=== PATIENT | male | born 1955 | race Caucasian/White ===

== ENCOUNTER 2017-11-17 05:22 | Emergency (ER) | payer OTHER ==
[2017-11-17 05:41] VITALS: BMI 30.1
--- NOTE | 2017-11-17 05:50 | PDOC ---
History of Present Illness - General Chief Complaint: Pain Stated Complaint: ABD PAIN Time Seen by Provider: 11/17/17 05:49 History Source: Patient - History of Present Illness Initial Comments: 11/17/17 06:54 62 year old male with LLQ pain since 2 am with 4 episodes of vomiting. + hard BM last night. denies fever/ chills, chest pain, urinary symptoms. unable to pass flatus. Past History - Past Medical History Allergies/Adverse Reactions: Allergies Allergy/AdvReac Type Severity Reaction Status Date / Time No Known Allergies Allergy Verified 11/17/17 05:41 Home Medications: Ambulatory Orders Aspirin [ASA -] 81 mg PO DAILY 11/17/17 Glipizide 10 mg PO DAILY 11/17/17 Lisinopril 10 mg PO DAILY 11/17/17 Metformin HCl 850 mg PO TID 11/17/17 Simvastatin 40 mg PO HS 11/17/17 COPD: No - Suicide/Smoking/Psychosocial Hx Smoking History: Never smoked Have you smoked in the past 12 months: No Information on smoking cessation initiated: No Hx Alcohol Use: No Drug/Substance Use Hx: No Review of Systems - Review of Systems Able to Perform ROS?: Yes Is the patient limited Hungarian proficient: No Constitutional: No: Symptoms Reported, See HPI, Chills, Diaphoresis, Fever, Loss of Appetite, Malaise, Night Sweats, Weakness, Weight Stable, Unintentional Wgt. Loss, Unexplained wgt Loss, Other ABD/GI: Yes: Nausea, Vomiting, Abdominal cramping *Physical Exam - Vital Signs Last Vital Signs Temp Pulse Resp BP Pulse Ox 98.8 F 104 H 18 154/78 98 11/17/17 05:37 11/17/17 05:37 11/17/17 05:37 11/17/17 05:37 11/17/17 05:37 - Physical Exam General Appearance: Yes: Appropriately Dressed Respiratory/Chest: positive: Lungs Clear, Normal Breath Sounds Gastrointestinal/Abdominal: positive: Tender (LLQ), Soft, Decreased BS Musculoskeletal: positive: Normal Inspection Extremity: positive: Normal Capillary Refill, Normal Inspection, Normal Range of Motion Integumentary: positive: Normal Color, Dry, Warm Neurologic: positive: Fully Oriented, Alert, Normal Mood/Affect Heart Score/ECG Review - ECG Intrepretation Rhythm: Regular Rhythm Comment:: 11/17/17 06:22 nsr: 98 bpm ED Treatment Course - LABORATORY CBC & Chemistry Diagram: 11/17/17 05:57 11/17/17 05:57 Progress Note - Progress Note Progress Note: A: LLQ pain P: CBC CMP CTAP NOrmal Saline Medical Decision Making - Medical Decision Making 11/17/17 07:00 patient signed out to Lorrie MIRAMONTES. CTAP , labs pending *DC/Admit/Observation/Transfer Diagnosis at time of Disposition: Abdominal pain Qualifiers: Abdominal location: left lower quadrant Qualified Code(s): R10.32 - Left lower quadrant pain - Discharge Dispostion Condition at time of disposition: Fair - Referrals Referrals: Car Rhodes MD [Primary Care Provider] - - Patient Instructions - Post Discharge Activity
[2017-11-17] MEDS ORDERED: ONDANSETRON 4 MG/2 ML VIAL IVPB ONE (05:59)
[2017-11-17] MEDS ORDERED: SODIUM CHLORIDE 500 ML IV STA (05:59)
[2017-11-17] MEDS ORDERED: ONDANSETRON 4 MG/2 ML VIAL ONE ×2 (06:07→10:27)
[2017-11-17 06:16] LABS: BASO % 0.8 % (0-2.0); EOS % 1.8 % (0-4.5); HEMATOCRIT 44.1 % (35.4-49); HEMOGLOBIN 15.2 GM/dL (11.7-16.9); LYMPH % 16.8 % (8-40); MCH 28.4 pg (25.7-33.7); MCHC 34.5 g/dl (32.0-35.9); MEAN CELL VOLUME 82.2 fl (80-96); MEAN PLT VOLUME 8.6 fl (7.5-11.1); MONO % 10.2 % (3.8-10.2); NEUT % 70.4 % (42.8-82.8); PLATELET COUNT 222 K/MM3 (134-434); RBC 5.37 M/mm3 (4.00-5.60); RDW 13.7 % (11.9-15.9); WHITE BLOOD COUNT 9.2 K/mm3 (4.0-10.0)
[2017-11-17] MEDS ORDERED: morphine SULFATE 4 MG/ML VIAL IVPUSH ONE (06:18)
[2017-11-17] MEDS ORDERED: morphine SULFATE 4 MG/ML VIAL ONE ×2 (06:19→09:04)
[2017-11-17 06:43] LABS: ALBUMIN 3.5 g/dl (3.4-5.0); ANION GAP 8 (8-16); BLOOD UREA NITROGEN 21 mg/dL (7-18); CALCIUM 8.8 mg/dL (8.5-10.1); CHLORIDE 106 mmol/L (98-107); CO2 26 mmol/L (21-32); GLUCOSE,RANDOM 232 mg/dL (74-106); SODIUM 140 mmol/L (136-145)
[2017-11-17 06:46] LABS: ALK PHOS 62 U/L (45-117); BILIRUBIN,TOTAL 0.3 mg/dL (0.2-1.0); CREATININE 1.4 mg/dL (0.7-1.3); SGPT/ALT 27 U/L (12-78); TOT PROT 6.6 g/dl (6.4-8.2)
[2017-11-17 06:47] LABS: LIPASE 212 U/L (73-393); POTASSIUM 5.1 mmol/L (3.5-5.1)
[2017-11-17 06:48] LABS: SGOT/AST 24 U/L (15-37)
--- NOTE | 2017-11-17 08:37 | PDOC ---
History of Present Illness - General Chief Complaint: Pain Stated Complaint: ABD PAIN Time Seen by Provider: 11/17/17 05:49 Past History - Past Medical History Allergies/Adverse Reactions: Allergies Allergy/AdvReac Type Severity Reaction Status Date / Time No Known Allergies Allergy Verified 11/17/17 05:41 Home Medications: Ambulatory Orders Aspirin [ASA -] 81 mg PO DAILY 11/17/17 Glipizide 10 mg PO DAILY 11/17/17 Lisinopril 10 mg PO DAILY 11/17/17 Metformin HCl 850 mg PO TID 11/17/17 Simvastatin 40 mg PO HS 11/17/17 COPD: No - Suicide/Smoking/Psychosocial Hx Smoking History: Never smoked Have you smoked in the past 12 months: No Information on smoking cessation initiated: No Hx Alcohol Use: No Drug/Substance Use Hx: No Review of Systems - Review of Systems Is the patient limited Austrian proficient: No *Physical Exam - Vital Signs Last Vital Signs Temp Pulse Resp BP Pulse Ox 98.8 F 104 H 18 154/78 98 11/17/17 05:37 11/17/17 05:37 11/17/17 05:37 11/17/17 05:37 11/17/17 05:37 ED Treatment Course - LABORATORY CBC & Chemistry Diagram: 11/17/17 05:57 11/17/17 05:57 - ADDITIONAL ORDERS Additional order review: Laboratory Results 11/17/17 05:57 Sodium 140 Potassium 5.1 Chloride 106 Carbon Dioxide 26 Anion Gap 8 BUN 21 H Creatinine 1.4 H Creat Clearance w eGFR 51.02 Random Glucose 232 H Calcium 8.8 Total Bilirubin 0.3 AST 24 ALT 27 Alkaline Phosphatase 62 Total Protein 6.6 Albumin 3.5 Lipase 212 11/17/17 05:57 RBC 5.37 MCV 82.2 MCHC 34.5 RDW 13.7 MPV 8.6 Neutrophils % 70.4 Lymphocytes % 16.8 Monocytes % 10.2 Eosinophils % 1.8 Basophils % 0.8 - RADIOLOGY Radiology Studies Ordered: Category Date Time Status ABDOMEN & PELVIS CT WITH CONTR [CT] Stat CT Scan 11/17/17 07:07 Ordered - Medications Given in the ED: ED Medications Discontinued Medications Generic Name Dose Route Start Last Admin Trade Name Freq PRN Reason Stop Dose Admin Sodium Chloride 500 mls @ 500 mls/hr 11/17/17 05:59 11/17/17 06:22 Normal Saline - IV 11/17/17 06:58 500 mls/hr ASDIR STA Administration Morphine Sulfate 4 mg 11/17/17 06:18 11/17/17 06:23 Morphine Sulfate IVPUSH 11/17/17 06:19 4 mg ONCE ONE Administration Ondansetron HCl 4 mg 11/17/17 05:59 11/17/17 06:23 Zofran Injection IVPB 11/17/17 06:00 4 mg ONCE ONE Administration Medical Decision Making - Medical Decision Making 11/17/17 08:30 Received patient from [facility]. Patient with left abdominal pain. Pt in for labs and Ct to rule out obstruction. 11/17/17 11:08 Laboratory Tests 11/17/17 11/17/17 11/17/17 05:57 05:57 09:01 WBC 9.2 Hgb 15.2 Hct 44.1 Plt Count 222 Neutrophils % 70.4 Sodium 140 Potassium 5.1 Chloride 106 Carbon Dioxide 26 Anion Gap 8 BUN 21 H Creatinine 1.4 H Creat Clearance w eGFR 51.02 Random Glucose 232 H Calcium 8.8 Total Bilirubin 0.3 AST 24 ALT 27 Lipase 212 Urine Glucose (UA) 2+ H Urine Ketones Trace H Urine Blood 3+ H Urine Nitrite Negative Ur Leukocyte Esterase Negative Urine WBC (Auto) None Urine RBC (Auto) 129 11/17/17 11:09 Shows a 0.3 cm proximal left ureteral calculus seen with resultant mild hydronephrosis. Diffuse hepatic steatosis and sigmoid diverticulosis noted. Small bilateral inguinal hernias containing fat only also noted. Patient will be given a dose of Toradol secondary to moderate complaints of left flank pain. Patient will be discharged home with urology follow-up, Flomax and Percocet. Patient also will be given supportive care instructions upon discharge *DC/Admit/Observation/Transfer Diagnosis at time of Disposition: Renal calculi - Discharge Dispostion Disposition: HOME Condition at time of disposition: Good - Referrals Referrals: Car Rhodes MD [Primary Care Provider] - Carlos Beckwith MD [Staff Physician] - - Patient Instructions Printed Discharge Instructions: DI for Kidney Stones Additional Instructions: Read over instructions as enclosed. Please drink at least 2 L of water on a daily basis. Please take Flomax for the next 7 days and to use Percocet as needed for severe discomfort. Please follow-up with referred urologist. - Post Discharge Activity
[2017-11-17] MEDS ORDERED: morphine CARPU-JECT 2 MG/1 ML DISP.SYRIN IVPUSH ONE (09:03)
[2017-11-17 09:15] LABS: URINE APPEARANCE CLOUDY; URINE BILIRUBIN NEGATIVE (<2.0 mg/dL); URINE COLOR YELLOW; URINE GLUCOSE (UA) 2+ (NEGATIVE); URINE KETONE TRACE (NEGATIVE); URINE LEUK ESTERASE NEGATIVE (NEGATIVE); URINE NITRITE NEGATIVE (NEGATIVE); URINE PROTEIN NEGATIVE (NEGATIVE); URINE UROBILINOGEN NEGATIVE mg/dL (0.2-1.0)
[2017-11-17 09:16] VITALS: BP 157/93; PULSE 90; TEMP 98.1
[2017-11-17 09:40] LABS: URIC ACID CRYSTALS MODERATE /hpf (NONE SEEN)
[2017-11-17] MEDS ORDERED: SODIUM CHLORIDE 1,000 ML IV STA (10:36)
[2017-11-17] MEDS ORDERED: ONDANSETRON 4 MG/2 ML VIAL IVPUSH ONE (10:36)
[2017-11-17] MEDS ORDERED: KETOROLAC TROMETHAMINE 30 MG/1 ML VIAL IVPUSH ONE (11:07)
[2017-11-17] MEDS ORDERED: KETOROLAC TROMETHAMINE 30 MG/1 ML VIAL ONE (11:09)
--- NOTE | 2017-11-17 13:24 | EKG ---
Test Reason : Blood Pressure : / mmHG Vent. Rate : 098 BPM Atrial Rate : 098 BPM P-R Int : 158 ms QRS Dur : 088 ms QT Int : 340 ms P-R-T Axes : 066 -10 047 degrees QTc Int : 434 ms NORMAL SINUS RHYTHM SEPTAL INFARCT , AGE UNDETERMINED ABNORMAL ECG WHEN COMPARED WITH ECG OF 17-NOV-2017 06:08, PREVIOUS ECG HAS UNDETERMINED RHYTHM, NEEDS REVIEW Confirmed by Reece Hensley ([id number]) on 11/17/2017 1:24:09 PM Referred By: Confirmed By:Reece Hensley
[2017-11-17 13:36] LABS: ACANTHOCYTES 0; ANISOCYTOSIS 0; HELMET CELLS 0; HOWELL-JOLLY BODIES 0; MACROCYTOSIS 0; OVALOCYTE 0; PLATELET ESTIMATE NORMAL; ROULEAU 0; SICKELED CELLS 0; TARGET CELLS 0; TEAR DROP CELLS 0; TOXIC GRANULATION 0
== END 2017-11-17 12:27 | disposition home or self-care (01) ==
LOC: JER 05:22
PROC: 3E0337Z Introduction of Electrolytic and Water Balance Substance into Peripheral Vein, Percutaneous Approach (ICD-10-PCS; principal; 2017-11-17)
PROC: 3E033GC Introduction of Other Therapeutic Substance into Peripheral Vein, Percutaneous Approach (ICD-10-PCS; 2017-11-17)
PROC: 3E033NZ Introduction of Analgesics, Hypnotics, Sedatives into Peripheral Vein, Percutaneous Approach (ICD-10-PCS; 2017-11-17)
DX: N13.2 Hydronephrosis with renal and ureteral calculous obstruction (principal); K76.0 Fatty (change of) liver, not elsewhere classified; K57.90 Diverticulosis of intestine, part unspecified, without perforation or abscess without bleeding
CPT/HCPCS: 36415; 74177-TC; 80053; 81003; 81015; 83690; 85025; 93005; 93010; 99282-25; J7030